=== PATIENT | female | born 1970 | race Caucasian/White ===

== ENCOUNTER 2018-05-09 23:50 | Emergency (ER) | payer MEDICAID, OTHER ==
[~2018-05-09] VITALS: Ht 177.8 cm; Wt 90.9 kg
[~2018-05-09 23:50] MED LIST: PHEN-786 PO
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
[2018-05-10] MEDS ORDERED: TETanus/Pertussis (Acell)/Diphther VAC/PF (Tdap-Adult) 0.5ml syringe IM ONE (00:10)
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
[2018-05-10 00:25] LABS: BASOPHILS # (AUTO) 0.1 X10'3 (0-0.2); EOSINOPHILS # (AUTO) 0.2 X10'3 (0-0.9); EOSINOPHILS % (AUTO) 3.1 % (0-6); HEMATOCRIT 38.1 % (35.0-45.0); HEMOGLOBIN 12.6 g/dl (12.0-16.0); LYMPHOCYTES # (AUTO) 3.5 X10'3 (1.1-4.8); LYMPHOCYTES % (AUTO) 43.9 % (21-51); MEAN CORPUSCULAR HGB CONC 32.9 g/dL (33.0-36.5); MEAN CORPUSCULAR VOLUME 91.1 FL (78-98); MEAN PLATELET VOLUME 7.5 FL (7.4-10.4); MONOCYTES # (AUTO) 0.4 X10'3 (0-0.9); MONOCYTES % (AUTO) 4.9 % (2-12); NEUTROPHILS # (AUTO) 3.8 X10'3 (1.8-7.7); NEUTROPHILS % (AUTO) 47.1 % (42-75); PLATELET COUNT 346 X10'3 (140-440); RED BLOOD COUNT 4.18 X10'6 (4.20-5.60); RED CELL DISTRIBUTION WIDTH 15.7 % (11.5-14.5); WHITE BLOOD COUNT 7.9 X10'3 (4.5-11.0)
--- NOTE | 2018-05-10 00:30 | NUR ---
back from [place]. She did very well.
--- NOTE | 2018-05-10 00:31 | NUR ---
[facility] AT BEDSIDE.
[2018-05-10 00:34] LABS: ALANINE AMINOTRANSFERASE 21 U/L (12-78); ALBUMIN 3.4 G/DL (3.4-5.0); ALBUMIN/GLOBULIN RATIO 0.8 (1.1-1.5); ALKALINE PHOSPHATASE 109 IU/L (46-116); ANION GAP 9 (8-16); ASPARTATE AMINO TRANSFERASE 22 U/L (10-37); BILIRUBIN,TOTAL 0.1 MG/DL (0.1-1.0); BLOOD UREA NITROGEN 10 MG/DL (7-18); CALCIUM 8.2 MG/DL (8.5-10.1); CHLORIDE 107 MMOL/L (99-107); CREATININE 0.91 MG/DL (0.40-0.90); ETHANOL 0.108 GM/DL (0.0-0.010); GLUCOSE 106 MG/DL (70-104); POTASSIUM 3.4 MMOL/L (3.5-5.1); SODIUM 141 MMOL/L (135-145); TOTAL CARBON DIOXIDE 25.5 MMOL/L (24-32); TOTAL PROTEIN 7.9 G/DL (6.4-8.2); eGFR 66 ML/MIN
[2018-05-10] MEDS ORDERED: iohexol 300mg/ml 100ml inj. ONE (00:34)
[2018-05-10] MEDS ORDERED: LISI-600 PO (00:36)
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
[2018-05-10 01:02] VITALS: BP 132/86
--- NOTE | 2018-05-10 01:02 | NUR ---
ALL CTS ARE NEGATIVE
[2018-05-10 01:03] LABS: INR 0.9 INR; PARTIAL THROMBOPLASTIN TIME 24 SECONDS (22-32); PROTHROMBIN TIME 9.6 SECONDS (9.0-12.0)
== END 2018-05-10 01:11 | disposition home or self-care (01) ==
LOC: ER 23:50
DX: S90.415A Abrasion, left lesser toe(s), initial encounter (principal); S80.812A Abrasion, left lower leg, initial encounter; R07.89 Other chest pain; R51 Headache; F15.90 Other stimulant use, unspecified, uncomplicated; Z88.6 Allergy status to analgesic agent; Z79.899 Other long term (current) drug therapy; Z98.51 Tubal ligation status; V49.9XXA Car occupant (driver) (passenger) injured in unspecified traffic accident, initial encounter; Y93.89 Activity, other specified; Y92.89 Other specified places as the place of occurrence of the external cause; Y99.8 Other external cause status
CPT/HCPCS: 36415; 70450; 71045; 71260; 72125; 74177; 80053; 80320; 85025; 85610; 85730; 90471; 90715; 93005; 99284; Q9967

== ENCOUNTER 2021-10-16 08:21 | Day surgery (SDC) | payer MEDICAID ==
[2021-10-16] VITALS (8 sets, daily range): BP systolic 99–129; BP diastolic 62–80
[~2021-10-16 08:21] MED LIST changes: +LISI20TA28 PO; -PHEN-786 PO
[2021-10-16] MEDS ORDERED: ATOR20TA12 PO (08:49)
[2021-10-16] MEDS ORDERED: TOPI25TA15 PO (08:49)
== END 2021-10-16 12:00 | disposition home or self-care (01) ==
LOC: SSTAY O 08:21
PROVIDERS: ATTEND Physician Assistant
DX: A53.9 Syphilis, unspecified (principal); E78.00 Pure hypercholesterolemia, unspecified; G43.909 Migraine, unspecified, not intractable, without status migrainosus; Z88.6 Allergy status to analgesic agent; Z79.899 Other long term (current) drug therapy; Z98.890 Other specified postprocedural states
CPT/HCPCS: 36415; 62328; 77003; 86592